=== PATIENT | female | born 1975 | race Caucasian/White ===

== ENCOUNTER 2024-12-23 13:33 | Outpatient (CLI) | payer OTHER, SELFPAY ==
--- NOTE | ~2024-12-23 | MM_ITS ---
EXAMINATION: screening [facility] BI w mica INDICATION: Asymptomatic, referred for screening mammogram COMPARISON: None available TECHNIQUE: Digital Breast Tomosynthesis CC, MLO views of Both breasts were obtained with computer-aided detection to assist in interpretation of the study. FINDINGS: There are scattered areas of fibroglandular density. There is an asymmetry seen on the MLO view in the Inferior right breast at middle third. Elsewhere, there are no mammographic features of malignancy. IMPRESSION: 1. Right breast Asymmetry. 2. No evidence of malignancy in the Left breast. RECOMMENDATION: Right breast Diagnostic mammogram with true lateral, appropriate spot compression views and an ultrasound if needed. BI-RADS Category 0: Incomplete: Needs additional imaging evaluation. Reviewed, dictated and finalized at location B. SPLIT TRIMMER IMPRESSION: 1. Right breast Asymmetry. 2. No evidence of malignancy in the Left breast. RECOMMENDATION: Right breast Diagnostic mammogram with true lateral, appropriate spot compressi on views and an ultrasound if needed. BI-RADS Category 0: Incomplete: Needs additional imaging evaluation.
--- OUTSIDE RECORDS SUMMARY | 2024-12-23 15:02 | XMS_ITS | Clinical Summary ---
Author Organization [facility] Administrative Offices Address [address] [place] [id number] Care Team Providers Care Precinct I Police Sergeant Name Role Phone Chung Montana MD Primary Care Provider [phone] Allergies No known active allergies Social History Tobacco Use Types Packs/Day Years Used Date Smoking Tobacco: Never Assessed Comments Unknown Sex and Gender Information Value Date Recorded Sex Assigned at Not on file Legal Sex Female 9:59 AM CDT Gender Identity Not on file Sexual Orientation Not on file Plan of Treatment Health Maintenance Due Date Last Done Comments DTAP/TDAP/TD VACCINES (1 - Tdap) 02/03/1992 HEPATITIS B VACCINES (1 of 3 - 19+ 3-dose series) 01/19 HPV/Cotest (21-29) 1994 CERVICAL CANCER SCREENING 2003 HPV/Cotest (30-65) 2003 PAP SMEAR 2003 BREAST CANCER SCREENING 2013 COLORECTAL SCREENING 2018 Colorectal Cancer Screening 2018 FIT-DNA Q 3 years 2018 FIT/FOBT Q 1 year 2018 Flex Sig/CT Colonography Q 5 years 2018 ZOSTER VACCINE (1 of 2) 2023 INFLUENZA VACCINE (#1) 2024 Insurance [facility] CHO[facility] [id number] Care Teams Precinct I Police Sergeant Relationship Specialty Start Date End Date Chung Montana MD [address] [address] PCP - General Internal Medicine 05/23/22
--- OUTSIDE RECORDS SUMMARY | 2024-12-23 15:02 | XMS_ITS | Clinical Summary ---
Author Organization [facility] Address [address] [place] [address] Care Team Providers Care Evaluation Manager Name Role Phone Chung Montana MD Primary Care Provider [phone] Source Comments [facility],non-owned Affiliates and Associated Physician Practices is amultiple site organization consisting of ambulatory clinics and hospital sitesin [place], [place], [place] and [place]. This disclosure is being madepursuant to the Care Everywhere program and may not contain all information available regarding this patient. Last updated 17.[facility] Allergies No known active allergies Medications * Be aware that medications may not be up to date on this document. Alwaysverify current medications with the patient. atorvastatin (LIPITOR) 20 MG tablet Take 1 (one) tablet by mouth at bedtime Active amLODIPine (NORVASC) 10 MG tablet Take 1 (one) tablet by mouth once daily 06/02/2019 Active furosemide (LASIX) 20 MG tablet 06/23/2019 Active medroxyPROGESTE Naresh (DEPO-PROVERA) 150 MG/ML prefilled syringe Every 90 days 06/03/2019 Active cetirizine (ZYRTEC) 10 MG tablet Take 1 (one) tablet by mouth once daily Active Active Problems Problem Noted Date Diagnosed Date Benign tumor of breast 05/25/2021 Breast mass seen on mammogram 05/25/2021 Essential hypertension 05/25/2021 Breast lump 05/25/2021 Lesion of breast 05/25/2021 Vitamin D deficiency 05/12/2021 Cerebral meningioma 04/03/2019 Brain mass 03/12/2019 Pure hypercholesterolemia 04/08/2018 Immunizations Immunization Administration Dates Next Due INFLUENZA VACCINE 11/24/2019 Family History Medical History Relation Name Comments Other Father vomited and cho ked Other Mother Liver Cancer Relation Name Status Comments Father Mother Son Alive Social History Tobacco Use Types Packs/Day Years Used Date Smoking Tobacco: Former Cigarettes 1 25 Smokeless Tobacco: Never Tobacco Cessation:Counseling Given: No Alcohol Use Standard Drinks/Week Comments Yes 4 (1 standard drink = 0.6 oz pur e alcohol) AUDIT-C Answer Date Recorded Frequency of Alcohol Consumption 4 or more times a week 03/14/2019 Average Number of Drinks 3 or 4 020 Frequency of Binge Drinking Not on file 02/20 Comments No Sex and Gender Information Value Date Recorded Sex Assigned at Not on file Legal Sex Female 6:22 PM [employer] Gender Identity Not on file Sexual Orientation Not on file Last Filed Vital Signs Vital Sign Reading Time Taken Comments Blood Pressure 135/87 06/21/2022 10:29 AM CDT Pulse 74 06/21/2022 10:29 AM CDT Temperature 36.7 C (98 F) 06/21/2022 10:29 AM CDT Respiratory Rate 18 06/21/2022 10:29 AM CDT Oxygen Saturation 99% 06/21/2022 10:29 AM CDT Inhaled Oxygen Concentration 40% 03/19/2019 6 :46 PM [employer] Weight 86.6 kg (191 lb) 06/21/2022 10:29 AM CDT Height 172.7 cm (5' 8) 06/21/2022 10:29 AM CDT Body Mass Index 29.04 06/21/2022 10:29 AM CDT Plan of Treatment Health Maintenance Due Date Last Done Comments COLOGUARD (AGES 45-75) - COLON CA SCREENING 1973 COLON MONITORING 1973 COLONOSCOPY - COLON CA SCREENING 1973 CT COLONOGRAPHY - COLON CA SCREENING 1973 Colorectal Cancer Screening 1973 FIT - COLON CA SCREENING 1973 FLEX SIG - COLON CA SCREENING 1973 MAMMOGRAM 1973 HIV SCREENING 02/03/1988 HEPATITIS C SCREENING 01/29/1991 DTAP/TDAP/TD VACCINES (1 - Tdap) 02/03/1992 HEPATITIS B VACCINE (1 of 3 - 19+ 3-dose series) 02/03/1992 PAP SMEAR 1994 SCREENING FOR DIABETES 06/21/2022 0, 03/20/2019, 03/19/2019, Additional history exists PNEUMOCOCCAL VACCINE 50+ (1 of 1 - PCV) 2023 ZOSTER VACCINE (1 of 2) 2023 DEPRESSION SCREENING 02/20/2024 COVID-19 VACCINE (1 - season) 2024 INFLUENZA VACCINE (#1) 2024 11/24/2019 HIB VACCINE Aged Out No longer eligi ble based on patient's age to complete this topic HPV VACCINE Aged Out No longer eligi ble based on patient's age to complete this topic MENINGOCOCCAL (Group B) VACCINE SHARED DECISION-MAKING Aged Out No longer eligible based on patient's age to complete this topic MENINGOCOCCAL GROUPS A/C/Y/W VACCINE Aged Out No longer eligible based on patient's age to complete this topic Medical Devices Implanted Type Area Server Support Technician Device Identifier Shelf Expiration Date Model / Serial / Lot Graft Tissue Drgn + Bvn Clgn Mtrx 5x4in Implanted:Qty: 1 on 03/19/2019 by Mina Bahena MD at [facility] Left: Cranial [employer] 12/19/2021 [id number] / / [id number] Cover Bur Hl 13.5mm Spne Bnt Implanted:Qty: 2 on 03/19/2019 by Mina Bahena MD at [facility] Left: Cranial [employer] [id number] / / Cover Bur Hl .3mm 18.5mm Thinflap Bnt Implanted:Qty: 4 on 03/19/2019 by Mina Bahena MD at [facility] Left: Cranial [employer] [id number] / / 19.5mm Flex Holts [place] Cover Implanted:Qty: 1 on 03/19/2019 by Mina Bahena MD at [facility] Left: Cranial [employer] [id number] / / Description:19.5MM FLEX MANUEL HOLE COVER Screw 1.5mm 4mm Slf Jeff Xdr Crnmxf Implanted:Qty: 17 on 03/19/2019 by Mina Bahena MD at [facility] Left: Cranial [employer] [id number] / / Procedures Procedure Name Priority Date/Time Associated Diagnosis Comments BASIC METABOLIC PANEL (CALCIUM TOTAL) Routine 03/21/2019 4:45 AM [employer] from Last 3 Months or Most Recently Relevant to Health Maintenance Results * (ABNORMAL) BASIC METABOLIC PANEL (CALCIUM TOTAL) (03/21/2019 4:45 AM [employer] TE[employer]) BUN 13 7 - 26 mg/dL 03/21/2019 5:[address] [facility] Creatinine 0.7 0.6 - 1.2 mg/dL 03/21/2019 5:24 AM [facility] Sodium 136 136 - 145 mmol/L 03/21/2019 5:24 AM [facility] Potassium 3.9 3.5 - 4.5 mmol/L 03/21/2019 5:24 AM [facility] Chloride 102 98 - 107 mmol/L 03/21/2019 5:24 AM [facility] CO2 26 22 - 29 mmol/L 03/21/2019 5:24 AM [facility] Glucose 155(H) 70 - 115 mg/dL 03/21/2019 5:24 AM [facility] Calcium 7.9(L) 8.4 - 10.2 mg/dL 03/21/2019 5:24 AM [facility] Anion Gap 12 8 - 18 03/21/2019 5:24 AM [facility] BUN/Creatinine Ratio 19 7 - 23 03/21/2019 5:24 AM [facility] Osmolality Calculated 285 270 - 300 mOsm/kg 03/21/2019 5:24 AM [facility] eGFR >60 >60 mL/min/1.7 3 m2 03/21/2019 5:24 AM [facility] Blood BLOOD SPECIMEN / Unknown Venipuncture / Unknown 03/21/2019 4:45 AM [employer] 03/21/2019 4:45 AM [employer] us Todd Cruz MD LAB - CHEMISTRY ORDERABLES Fin al Result [facility] [address] [place] [address], [facility] [phone] from Last 3 Months or Most Recently Relevant to Health Maintenance Insurance [facility] Advance Directives * Full Code (Latest Code Status on File) Date Activated Date Inactivated Comments 03/12/2019 11:07 PM 03/21/2019 5:53 PM * Full Code Date Activated Date Inactivated Comments 03/12/2019 9:02 PM 03/12/2019 11:06 PM Care Teams Evaluation Manager Relationship Specialty Start Date End Date Chung Montana MD [address] [place] [address] [address] [place] [address] PCP - General Internal Medicine 03/12/19
== END 2024-12-23 13:34 | disposition home or self-care (01) ==
LOC: ANHFOHIMG 13:35
PROVIDERS: PCP Internal Medicine; Visit Provider Obstetrics & Gynecology
DX: Z12.31 Encounter for screening mammogram for malignant neoplasm of breast (principal); N64.89 Other specified disorders of breast
CPT/HCPCS: 77063; 77067